=== PATIENT | female | born 1970 | race Caucasian/White ===

== ENCOUNTER → 2018-03-08 | Outpatient (CLI) | payer BC ==
--- NOTE | 2018-03-23 16:17 | WOMENS IMAGING REPORT ---
EXAM DESCRIPTION: 3D SCREENING MAMMO BILAT COMPLETED DATE/TIME: 03/08/2018 10:19 am REASON FOR STUDY: BILATERAL SCREENING; Z12.31 Z12.31 ENCNTR SCREEN MAMMOGRAM FOR MALIGNANT NEOPLASM OF JHONATHAN COMPARISON: None. TECHNIQUE: Standard craniocaudal and mediolateral oblique views of each breast recorded using digita l acquisition and breast tomosynthesis. Additional "push-back craniocaudal and mediolateral oblique images acquired. LIMITATIONS: None. FINDINGS: IMPLANTS: Bilateral subglandular implants. Findings present which are benign by mammographic criteria. No suspicious masses, calcifications or a rchitectural distortion. Read with the assistance of CAD. .[facility] - R2 Cenova Version 1.3 .[facility] Imaging - R2 Cenova Version 1.3 .[facility] - R2 Cenova Version 2.4 .[facility] [place] - R2 Cenova Version 2.4 .[facility] - R2 [employer] Version 9.2 Benign mammographic findings may include one or more of the following: Smooth masses, popcorn/rim/co arse calcifications, asymmetries, post-procedure changes, and lesions with long-standing stability. IMPRESSION: BENIGN MAMMOGRAPHIC FINDINGS. BIRADS 2 BREAST DENSITY: c. The breasts are heterogeneously dense, which may obscure small masses. BIRAD: 2 BENIGN FINDING(S) RECOMMENDATION: ROUTINE SCREENING COMMENT: The patient has been notified of the results by letter per SA requirements. Additional no tification policies are in place for contacting patient with suspicious or incomplete findings. Quality ID #[id number]: The [employer] recommends an annual screening mammogram for women aged 40 years or over. This facility utilizes a reminder system to ensure that all patients receive reminder letters, and/or direct phone calls for appointments. This includes reminders for routine scr eening mammograms, diagnostic mammograms, or other Breast Imaging Interventions when appropriate. Th is patient will be placed in the appropriate reminder system. The [employer] (ACR) has developed recommendations for screening MRI of the breast s in certain patient populations, to be used in conjunction with mammography. Breast MRI surveillanc e may be appropriate for women with more than 20% lifetime risk of developing breast cancer as deter mined by genetic testing, significant family history of the disease, or history of mantle radiation f or Hodgkins Disease. ACR Practice Guidelines 2008. DBT Technology DBT is a type of tomographic mammography. With conventional mammography, overlapping breast tissue ma y make lesions difficult to detect, even with good compression. DBT uses an x-ray tube that rotates a round the breast, taking images at different angles. These images are then combined to create thin sl ices of the breast that the radiologist can view as a 3D reconstruction. The Pearescope unit can perform full-field digital mammograms (2D imaging); or DBT (3D imaging); or both, in a combination mode that quickly performs both the mammogram and the tomosynthesis scan while the breast is still compressed. PQRS 6045F: Fluoroscopic imaging is not utilized for breast tomosynthesis. TECHNICAL DOCUMENTATION: FINDING NUMBER: (1) ASSESSMENT: (1) JOB ID: [id number] [employer]- All Rights Reserved Reading location - IP/workstation name: [email or web address]
== END ==
LOC: WI 10:10
PROVIDERS: ATTEND Nurse Practitioner Primary Care
DX: Z12.31 Encounter for screening mammogram for malignant neoplasm of breast (principal); Z98.82 Breast implant status
CPT/HCPCS: 77063; 77067

== ENCOUNTER → 2018-03-15 | Outpatient (CLI) | payer BC | LOC: OD 16:04 | PROVIDERS: ATTEND Nurse Practitioner Primary Care | DX: R87.610 Atypical squamous cells of undetermined significance on cytologic smear of cervix (ASC-US) (principal) | CPT/HCPCS: 88305 ==

== ENCOUNTER 2020-03-21 00:25 | Emergency (ER) | payer BC ==
[2020-03-21 00:46] VITALS: BP 138/81
--- NOTE | 2020-03-21 01:01 | ER Document Report ---
ED Medical Screen (RME) - General Stated Complaint: MEDICAL CLEARANCE Time Seen by Provider: 03/21/20 00:48 Primary Care Provider: JOHN LANIER NP [NURSE PRACTITIONER] - Follow up as needed Mode of Arrival: Ambulatory Information source: Patient Notes: Patient is a 49-year-old female presenting to the emergency department requesting lab work. 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 She states on her way home from the airport she was pulled over for speeding. She states that the officer said he smelled alcohol in her vehicle and asked her to submit to field sobriety test. She states that she complied with this request, however due to severe nasal congestion she was unable to complete the breathalyzer test. Patient reports that the officer charged her with a DUI and said that since she was unable to complete the breathalyzer test that was technically a refusal. Patient reports she did have 1 alcoholic beverage earlier in the day on 03/20/2020 on the flight from [place] to [place]. She states this was at approximately 1-2 PM [place] time. She states she has not had any alcohol since that timeframe. She is requesting that we test her for any potential substances so that she can prove that she was not impaired while driving. TRAVEL OUTSIDE OF THE [place] IN LAST 30 DAYS: No - Related Data Allergies/Adverse Reactions: all "cillins" Allergy (Unknown, Uncoded 08/02/12 08:00) Past Medical History Pulmonary Medical History: Reports: Hx Pneumonia GI Medical History: Reports: Hx Ulcer Past Surgical History: Reports: Hx Breast Surgery - augmentation, Hx Orthopedic Surgery - L hand. Denies: Hx Pacemaker - Immunizations Hx Diphtheria, Pertussis, Tetanus Vaccination: No Physical Exam - Vital signs Vitals: Temp Pulse Resp BP Pulse Ox 97.7 F 77 12 138/81 H 100 03/21/20 00:45 03/21/20 00:45 03/21/20 00:45 03/21/20 00:45 03/21/20 00:45 Course - Vital Signs Vital signs: Temp Pulse Resp BP Pulse Ox 97.7 F 77 12 138/81 H 100 03/21/20 00:45 03/21/20 00:45 03/21/20 00:45 03/21/20 00:45 03/21/20 00:45 Doctor's Discharge - Discharge Clinical Impression: Encounter for medical screening examination Condition: Stable Disposition: HOME, SELF-CARE Additional Instructions: Your evaluation does not show any concerning findings. Follow-up with your primary care for additional management. Return to the emergency department for any concerning symptoms or if something is not right. Referrals: JOHN LANIER NP [NURSE PRACTITIONER] - Follow up as needed
[2020-03-21 01:41] LABS: URINE AMPHETAMINES SCREEN UNCONFIRMED POSITIVE; URINE BARBITURATES SCREEN NEGATIVE; URINE BENZODIAZEPINES SCREEN NEGATIVE; URINE COCAINE SCREEN NEGATIVE; URINE MARIJUANA (THC) SCREEN NEGATIVE; URINE METHADONE SCREEN NEGATIVE; URINE PHENCYCLIDINE SCREEN NEGATIVE
--- NOTE | 2020-03-21 02:39 | ER Document Report ---
HPI - HPI Time Seen by Provider: 03/21/20 00:48 Pain Level: Denies Context: Patient is a 49-year-old female that comes emergency department for chief complaint of wanting lab work performed. 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 She states that she had had 1 drink on the first part of the plane flight and nothing since, she states that she was not intoxicated, she states that however the law enforcement asked her to perform a mendes prior to test. She states she complied with a request and passed this, however they also wanted to do a breathalyzer test and because of severe nasal congestion at that time she was unable to complete the breathalyzer test. She states that she had been crying after being pulled over and had already been congested and this was why she could not perform it. She states that the officer then charged her with a DUI because of a technical refusal on the breathalyzer test. She states that they were attempting to perform the breathalyzer test at approximately 11 PM. She states that after this cannot be performed and she was charged with a DUI she came here open to get a drug screen performed and alcohol test performed. She has no current symptoms and denies any other complaints. - REPRODUCTIVE Reproductive: DENIES: : Past Medical History - General Information source: Patient - Social History Smoking Status: Never Smoker Lives with: Family Family History: Reviewed & Not Pertinent Patient has homicidal ideation: No Pulmonary Medical History: Reports: Hx Pneumonia GI Medical History: Reports: Hx Ulcer Past Surgical History: Reports: Hx Breast Surgery - augmentation, Hx Orthopedic Surgery - L hand. Denies: Hx Pacemaker - Immunizations Hx Diphtheria, Pertussis, Tetanus Vaccination: No Vertical Provider Document - INFECTION CONTROL TRAVEL OUTSIDE OF THE [place] IN LAST 30 DAYS: No - HEENT HEENT: Atraumatic, Normocephalic, PERRLA. negative: Conjuctival Injection - Normal EOMs, no nystagmus, Normal ENT Exam - Mild nasal congestion but no swelling, tenderness, discolored drainage, or other concerning findings. Normal oropharyngeal exam - NECK Neck: Normal Inspection - RESPIRATORY Respiratory: Breath Sounds Normal, No Respiratory Distress - CARDIOVASCULAR Cardiovascular: Regular Rate, Regular Rhythm - GI/ABDOMEN Gastrointestinal: Abdomen Soft, Abdomen Non-Tender. negative: Abdomen Tender - BACK Back: Normal Inspection - MUSCULOSKELETAL/EXTREMETIES Musculoskeletal/Extremeties: JIM THOMPSON - NEURO Level of Consciousness: Awake, Alert, Appropriate. negative: Inappropriate, Slow to Respond, Confused, Agitated, Sedated Motor/Sensory: No Motor Deficit, No Sensory Deficit - DERM Integumentary: Warm, Dry, No Rash Course - Re-evaluation Re-evalutation: Patient with an unremarkable exam except for some nasal congestion. Patient states she is on phentermine, her drug screen does show amphetamine. Drug scree n otherwise unremarkable. Alcohol level is only 12 here. I provided patient with a copy of her lab work on request. Patient with no other complaints, stable for discharge. - Vital Signs Vital signs: Temp Pulse Resp BP Pulse Ox 97.7 F 77 12 138/81 H 100 03/21/20 00:45 03/21/20 00:45 03/21/20 00:45 03/21/20 00:45 03/21/20 00:45 Discharge - Discharge Clinical Impression: Encounter for medical screening examination Condition: Stable Disposition: HOME, SELF-CARE Additional Instructions: Your evaluation does not show any concerning findings. Follow-up with your primary care for additional management. Return to the emergency department for any concerning symptoms or if something is not right. Referrals: JOHN LANIER NP [NURSE PRACTITIONER] - Follow up as needed
== END 2020-03-21 02:45 | disposition home or self-care (01) ==
LOC: ER 00:25
DX: Z04.89 Encounter for examination and observation for other specified reasons (principal); R09.81 Nasal congestion
CPT/HCPCS: 36415; 80307; 99283